=== PATIENT | female | born 1950 | race African-American/Black ===

== ENCOUNTER 2018-12-04 10:25 | Emergency (ER) | payer BC, MEDICARE ==
[~2018-12-04] VITALS: Ht 167.6 cm; Wt 109.0 kg
[2018-12-04] MEDS ORDERED: MECLIZINE 25MG TABLET PO ONE (11:45)
[2018-12-04 12:20] VITALS: BP 134/90
[2018-12-04 12:22] LABS: BASOPHILS % 0.7 % (0.0-2.0); EOSINOPHILS % 3.9 % (0.0-5.0); HEMATOCRIT. 36.3 % (36.0-48.0); HEMOGLOBIN. 12.1 g/dL (12.0-16.0); LYMPHOCYTES % 28.1 % (20.0-50.0); MEAN CORPUSCULAR HEMOGLOBIN 27.4 pg (28.0-32.0); MEAN CORPUSCULAR VOLUME 81.9 fL (81.0-99.0); NEUTROPHILS % 59.3 % (40.0-76.0); PLATELET 271 x1000/uL (130-400); RED BLOOD CELL COUNT 4.42 mill/uL (4.2-5.4); RED CELL DISTRIBUTION WIDTH 15.1 % (11.6-14.6)
[2018-12-04 12:29] LABS: CHLORIDE 109 mEq/L (98-107)
== END 2018-12-04 14:13 | disposition home or self-care (01) ==
LOC: ER 10:25
DX: H81.10 Benign paroxysmal vertigo, unspecified ear (principal); I10 Essential (primary) hypertension; H91.92 Unspecified hearing loss, left ear; Z88.5 Allergy status to narcotic agent; Z88.7 Allergy status to serum and vaccine
CPT/HCPCS: 36415; 80053; 85025; 99283; J8597

== ENCOUNTER 2019-09-02 16:00 | Emergency (ER) | payer BC ==
[~2019-09-02] VITALS: Ht 167.6 cm; Wt 108.0 kg
[2019-09-02] MEDS ORDERED: IBUPROFEN 800MG TABLET PO ONE (20:45)
[2019-09-02] MEDS ORDERED: DIAZEPAM 2 MG TABLET PO ONE (23:00)
[2019-09-03 01:00] VITALS: BP 137/77
== END 2019-09-03 02:00 | disposition home or self-care (01) ==
LOC: ER 16:00
DX: S09.8XXA Other specified injuries of head, initial encounter (principal); S80.02XA Contusion of left knee, initial encounter; I10 Essential (primary) hypertension; Z88.5 Allergy status to narcotic agent; Z88.7 Allergy status to serum and vaccine; W01.0XXA Fall on same level from slipping, tripping and stumbling without subsequent striking against object, initial encounter; Y93.89 Activity, other specified; Y92.512 Supermarket, store or market as the place of occurrence of the external cause
CPT/HCPCS: 73590; 99284

== ENCOUNTER 2019-09-10 08:33 | Emergency (ER) | payer BC ==
[~2019-09-10] VITALS: Ht 167.6 cm; Wt 108.0 kg
[2019-09-10] MEDS ORDERED: ACETAMINOPHEN 160 MG/5 ML UD CUP PO ONE (11:00)
[2019-09-10] MEDS ORDERED: MORPHINE SULFATE 4 MG/ML CPJ (NOT FOR IM USE) IV STA (11:03)
[2019-09-10] MEDS ORDERED: KETOROLAC 30MG/ML VIAL IV STA (11:03)
[2019-09-10 13:04] VITALS: BP 166/104
== END 2019-09-10 13:30 | disposition home or self-care (01) ==
LOC: ER 08:33
DX: M54.6 Pain in thoracic spine (principal); M54.2 Cervicalgia; I10 Essential (primary) hypertension; Z88.5 Allergy status to narcotic agent; Z88.7 Allergy status to serum and vaccine
CPT/HCPCS: 72040; 72070; 72100; 81025; 99283; J1885; J2270

== ENCOUNTER 2023-05-28 10:01 | Emergency (ER) | payer BC, OTHER ==
[~2023-05-28] VITALS: Ht 165.1 cm; Wt 99.0 kg
[2023-05-28 10:12] VITALS: O2SAT 98
[2023-05-28] MEDS ORDERED: KETOROLAC 30MG/ML VIAL IV STA (10:59)
[2023-05-28] MEDS ORDERED: DEXAMETHASONE 10 MG/ML VIAL IV ONE (11:00)
[2023-05-28 11:25] LABS: BASOPHILS % 0.7 % (0.0-2.0); EOSINOPHILS % 4.3 % (0.0-5.0); HEMATOCRIT. 38.4 % (36.0-48.0); HEMOGLOBIN. 12.6 g/dL (12.0-16.0); LYMPHOCYTES % 29.7 % (20.0-50.0); MEAN CORPUSCULAR HEMOGLOBIN 27.9 pg (28.0-32.0); MEAN CORPUSCULAR HGB CONC 32.9 g/dL (31.0-37.0); MEAN PLATELET VOLUME 8.8 fl (7.4-10.4); MONOCYTES % 7.8 % (2.0-8.0); NEUTROPHILS % 57.5 % (40.0-76.0); PLATELET 259 x1000/uL (130-400); RED BLOOD CELL COUNT 4.51 mill/uL (4.2-5.4); RED CELL DISTRIBUTION WIDTH 14.8 % (11.6-14.6); WHITE BLOOD COUNT 4.6 x1000/uL (4.5-11.0)
[2023-05-28 11:41] LABS: CHLORIDE 113 mEq/L (98-107); INDEX HEMOLYSI 1 (1-3); INDEX ICTERIC 1 (1-4); INDEX LIPEMIC 1 (1-3); POTASSIUM 3.2 mEq/L (3.5-5.1); SODIUM 141 mEq/L (136-145)
[2023-05-28 12:17] LABS: ALBUMIN 3.3 g/dL (3.4-5.0); ASPARTATE AMINOTRANSFERASE 12 IU/L (15-37); BILIRUBIN TOTAL 0.8 mg/dL (0.1-1.0); CALCIUM 8.7 mg/dL (8.5-10.1); CARBON DIOXIDE 23 mEq/L (21-32); GLUCOSE 177 mg/dL (70-105); PROTEIN TOTAL 7.7 g/dL (6.0-8.3); UREA NITROGEN BLOOD 14 mg/dL (7-21)
[2023-05-28 12:18] LABS: ALANINE AMINOTRANSFERASE 16 IU/L (13-61)
[2023-05-28 14:20] VITALS: BP 145/87; PULSE 91; RESP 20; TEMP 97.9
== END 2023-05-28 14:21 | disposition home or self-care (01) ==
LOC: ER 10:01 → EDBD 10:01 → ER 14:21 → CANBEDREQ 05-30 21:14
DX: M54.50 Low back pain, unspecified (principal); R32 Unspecified urinary incontinence; I10 Essential (primary) hypertension; Z98.890 Other specified postprocedural states
CPT/HCPCS: 99285; 72148; 96374; 96375; 80053; 85025; 36415; J1100; J1885

== ENCOUNTER 2024-01-23 15:47 | Emergency (ER) | payer BC ==
[~2024-01-23] VITALS: Ht 162.6 cm; Wt 103.4 kg
[2024-01-23 16:05] VITALS: BP 144/69; TEMP 98.2; O2SAT 100
[2024-01-23 17:50] LABS: BASOPHILS % 0.6 % (0.0-2.0); HEMATOCRIT. 37.5 % (36.0-48.0); HEMOGLOBIN. 12.5 g/dL (12.0-16.0); LYMPHOCYTES % 37.8 % (20.0-50.0); MEAN CORPUSCULAR HEMOGLOBIN 29.1 pg (28.0-32.0); MEAN CORPUSCULAR HGB CONC 33.3 g/dL (31.0-37.0); MEAN CORPUSCULAR VOLUME 87.4 fL (81.0-99.0); MEAN PLATELET VOLUME 8.7 fl (7.4-10.4); MONOCYTES % 6.7 % (2.0-8.0); NEUTROPHILS % 49.9 % (40.0-76.0); PLATELET 257 x1000/uL (130-400); RED BLOOD CELL COUNT 4.29 mill/uL (4.2-5.4); RED CELL DISTRIBUTION WIDTH 14.2 % (11.6-14.6); WHITE BLOOD COUNT 4.2 x1000/uL (4.5-11.0)
[2024-01-23 17:55] LABS: CHLORIDE 107 mEq/L (98-107); POTASSIUM 3.6 mEq/L (3.5-5.1); SODIUM 142 mEq/L (136-145)
[2024-01-23 17:56] LABS: CARBON DIOXIDE 29 mEq/L (21-32)
[2024-01-23 17:57] LABS: CALCIUM 9.2 mg/dL (8.7-10.4)
[2024-01-23 18:01] LABS: CREATININE 1.2 mg/dL (0.6-1.0); GLUCOSE 99 mg/dL (70-105)
[2024-01-23 18:02] LABS: TROPONIN I HIGH SENSITIVITY < 4 ng/L (3.0-34); UREA NITROGEN BLOOD 19 mg/dL (9-23)
[2024-01-23 18:03] LABS: ALANINE AMINOTRANSFERASE < 7 IU/L (10-49)
[2024-01-23 18:04] LABS: ALBUMIN 4.3 g/dL (3.2-4.8); ASPARTATE AMINOTRANSFERASE 15 IU/L (<34); BILIRUBIN TOTAL 0.7 mg/dL (0.1-1.0); PROTEIN TOTAL 7.9 g/dL (6.0-8.3)
[2024-01-23] MEDS ORDERED: TOPUD MT (18:14)
[2024-01-23] MEDS ORDERED: IBUP-1525 MT (18:14)
[2024-01-23 18:30] VITALS: PULSE 80; RESP 16
== END 2024-01-23 18:31 | disposition home or self-care (01) ==
LOC: ER 15:47
DX: S70.02XA Contusion of left hip, initial encounter (principal); I10 Essential (primary) hypertension; V49.59XA Passenger injured in collision with other motor vehicles in traffic accident, initial encounter; Y93.89 Activity, other specified; Y92.89 Other specified places as the place of occurrence of the external cause; Y99.8 Other external cause status
CPT/HCPCS: 36415; 71045; 73522; 80053; 83880; 84484; 85025; 99284

== ENCOUNTER 2024-01-30 12:55 | Emergency (ER) | payer BC ==
[~2024-01-30] VITALS: Ht 167.6 cm; Wt 101.0 kg
[~2024-01-30 12:55] MED LIST: IBUP-1525 MT; TOPUD MT
[2024-01-30 12:59] VITALS: O2SAT 99
[2024-01-30 15:18] VITALS: BP 152/85; PULSE 84; RESP 18; TEMP 98.1
== END 2024-01-30 15:21 | disposition home or self-care (01) ==
LOC: ER 12:55
DX: M25.552 Pain in left hip (principal); K21.9 Gastro-esophageal reflux disease without esophagitis; I10 Essential (primary) hypertension; V49.49XA Driver injured in collision with other motor vehicles in traffic accident, initial encounter; Y93.89 Activity, other specified; Y92.89 Other specified places as the place of occurrence of the external cause; Y99.8 Other external cause status
CPT/HCPCS: 99281